=== PATIENT | male | born 1935 | race Caucasian/White ===

== ENCOUNTER 2018-05-10 10:00 | Emergency (ER) | payer MEDICARE, OTHER | END 2018-05-10 12:19 | disposition home or self-care (01) | LOC: E/R 10:00 | DX: I10 Essential (primary) hypertension (principal); R40.2142 Coma scale, eyes open, spontaneous, at arrival to emergency department; R40.2362 Coma scale, best motor response, obeys commands, at arrival to emergency department; R40.2252 Coma scale, best verbal response, oriented, at arrival to emergency department | CPT/HCPCS: 93005; 99283-25 ==